=== PATIENT | female | born 1990 | race Two or more races ===

== ENCOUNTER 2024-06-06 19:00 | Emergency (ER) | payer OTHER ==
[~2024-06-06] VITALS: Ht 160 cm; Wt 104.5 kg
[2024-06-06 19:56] VITALS: O2SAT 98
[2024-06-06] MEDS: TraMADol HCL 50 MG TABLET PO ONE (21:38)
[2024-06-06] MEDS: LIDOCAINE 1% 10 ML VIAL SQ ONE (21:39)
[2024-06-06] MEDS ORDERED: DOXY-354 PO (22:01)
[2024-06-06 23:46] VITALS: BP 122/63; PULSE 79; RESP 0; TEMP 97.9
== END 2024-06-07 00:33 | disposition home or self-care (01) ==
LOC: EMS 19:00
DX: L02.213 Cutaneous abscess of chest wall (principal); L73.2 Hidradenitis suppurativa
CPT/HCPCS: 99283; 10060; 84703; 36415; J3490